=== PATIENT | female | born 1945 | race African-American/Black ===

== ENCOUNTER → 2017-05-21 | Day surgery (SDC) | payer MEDICARE ==
[~2017-05-21] VITALS: Ht 162.6 cm; Wt 68.0 kg
[~2017-05-21] MED LIST: ASPI-516 CHEW; ATOR40TA16 PO; CALC500T37 PO; CHLORHEXIDINE GLUCONATE 2 % 1 PACK (2 CLOTHS) TOPICAL PRN; CHOL1TAB29 PO; CLAR10CA3 PO; ESTR0.5T3 PO; FERR325T18 PO; FURO1TAB60 PO; HYDR500C PO; INSULIN HUMAN REGULAR 1,000 UNITS/10 ML VIAL SQ PRN; KLYTECL PO; LACTATED RINGER'S 1000 ML IV PRN; LIDOCAINE HCL 1% PF 30 ML VIAL ONE; LIDOCAINE HCL 2% JELLY 5 ML SYRINGE TOPICAL ONE; METOPROLOL TARTRATE 25 MG TAB PO PRN; MULTTAB67 PO; POVIDONE IODINE 5% (ANTISEPSIS KIT) 4 APPLICATIONS EACH NARE PRN; PROPARACAINE HCL 0.5% OPHT SOLN 15 ML BTL RIGHT EYE ONE; SODIUM CHLORID 0.9% 500 ML IV PRN; TOBRAMYCIN/DEXAMETHASONE OPTH OINT 3.5 GM TUBE ONE; VALA500T PO; VITA200C3 PO
[2017-05-21] MEDS: FLURBIPROFEN 0.03% OPHT SOLN 2.5 ML BTL RIGHT EYE SCH ×4 (08:30→08:45)
[2017-05-21] MEDS: PHENYLEPHRINE HCL 10% OPTH SOLN 5 ML BTL RIGHT EYE SCH ×4 (08:30→08:45)
[2017-05-21] MEDS: TROPICAMIDE 1% OPHT SOLN 15 ML BTL RIGHT EYE SCH ×4 (08:30→08:45)
[2017-05-21] MEDS: CYCLOPENTOLATE HCL 1% OPHT SOLN 2 ML BTL RIGHT EYE SCH ×4 (08:30→08:45)
[2017-05-21 10:00] VITALS: TEMP 98.6
[2017-05-21 10:20] VITALS: BP 126/66; PULSE 69; RESP 16; O2SAT 97
--- NOTE | 2017-05-21 12:17 | MP ---
cc: Trae Vizcaino MD DATE OF OPERATION: 05/21/2017 [facility] #[id number] PREOPERATIVE DIAGNOSIS: Visually significant cataract right eye. POSTOPERATIVE DIAGNOSIS: Visually significant cataract right eye. OPERATION: Phacoemulsification with posterior chamber lens implantation, right eye. SURGEON: Trae Vizcaino MD ANESTHESIA: Topical with MAC. COMPLICATIONS: None. DESCRIPTION OF THE PROCEDURE IN DETAIL: After informed consent was obtained, the patient was brought into the operative suite and placed on appropriate monitors by the anesthesia service. The patient had been given dilating drops and topical lidocaine gel in the holding area. The patient's operative eye was then prepped and draped in the usual sterile fashion. A wire lid speculum was placed. Further 2% lidocaine was then dropped on the cornea prior to beginning the procedure. A paracentesis incision was made in the peripheral cornea with a 1 mm brendan keratome. The anterior chamber was filled with viscoelastic. The anterior chamber was then entered through a stepped, clear corneal incision using a sharp 3 mm brendan keratome. A circular tear capsulorrhexis was then made with a bent needle cystitome. Following hydrodissection of the lens nucleus with balance saline, phacoemulsification of the nucleus was performed using a modified chopping technique. The remaining cortex was removed with irrigation/aspiration. The prior two procedures were both performed using the handpieces of the [employer] phaco unit. The capsular bag was then filled with viscoelastic. The intraocular lens was then injected into the capsular bag and positioned. The type of intraocular lens and its power can be found elsewhere in this chart. The remaining viscoelastic was then removed from the anterior chamber with the IA handpiece. The anterior chamber was reformed with balanced saline. The wound was then closed securely with stromal hydration. It was found to be watertight to an intraocular pressure of at least 30 mmHg by palpation. A small amount of balanced salt solution was then removed through the paracentesis site and the intraocular pressure at the end of the case was approximately 20 by palpation. All drapes were then removed. TobraDex ointment was then placed in the eye, which was closed beneath a semi-pressure patch dressing. The patient tolerated this procedure well and left the operating room awake and alert. The patient is to follow-up in my office in the morning. ADDENDUM: After the clear corneal incisions were sealed watertight, an 8 mm limbal relaxing incision was made with a 600 micron brendan blade, centered around the nasal 180 degree meridian. MD MARGOT Suazo/JORDAN , 10:01 AM , 10:26 AM
== END | disposition home or self-care (01) ==
LOC: PHSDC 07:11
PROVIDERS: ATTEND Optometrist Occupational Vision
DX: H25.811 Combined forms of age-related cataract, right eye (principal)
CPT/HCPCS: 00142; 66984; J7040; V2632

== ENCOUNTER → 2017-07-09 | Day surgery (SDC) | payer MEDICARE ==
[~2017-07-09] VITALS: Ht 162.6 cm; Wt 68.0 kg
[~2017-07-09] MED LIST changes: -ATOR40TA16 PO; +ATOR80TA45 PO; +BIOTCAP PO; -CALC500T37 PO; +CYCLOPENTOLATE HCL 1% OPHT SOLN 2 ML BTL ONE; -ESTR0.5T3 PO; +ESTR42.5V VAGINAL; +FLURBIPROFEN 0.03% OPHT SOLN 2.5 ML BTL ONE; -INSULIN HUMAN REGULAR 1,000 UNITS/10 ML VIAL SQ PRN; +LIDOCAINE HCL 2% JELLY 5 ML SYRINGE ONE; -MULTTAB67 PO; +PHENYLEPHRINE HCL 10% OPTH SOLN 5 ML BTL ONE; +PROPARACAINE HCL 0.5% OPHT SOLN 15 ML BTL LEFT EYE ONE; +PROPARACAINE HCL 0.5% OPHT SOLN 15 ML BTL ONE; -PROPARACAINE HCL 0.5% OPHT SOLN 15 ML BTL RIGHT EYE ONE; +TROPICAMIDE 1% OPHT SOLN 15 ML BTL ONE
[2017-07-09] MEDS: CYCLOPENTOLATE HCL 1% OPHT SOLN 2 ML BTL LEFT EYE SCH ×4 (06:45→07:00)
[2017-07-09] MEDS: FLURBIPROFEN 0.03% OPHT SOLN 2.5 ML BTL LEFT EYE SCH ×4 (06:45→07:00)
[2017-07-09] MEDS: TROPICAMIDE 1% OPHT SOLN 15 ML BTL LEFT EYE SCH ×4 (06:45→07:00)
[2017-07-09] MEDS: PHENYLEPHRINE HCL 10% OPTH SOLN 5 ML BTL LEFT EYE SCH ×4 (06:45→07:00)
[2017-07-09 08:21] VITALS: TEMP 97.8
[2017-07-09 08:37] VITALS: BP 134/65; PULSE 80; RESP 14; O2SAT 99
--- NOTE | 2017-07-09 10:29 | MP ---
cc: Trae Vizcaino MD DATE OF OPERATION: 07/09/2017 [facility] NUMBER: [id number] DATE OF PROCEDURE: 07/09/2017 PREOPERATIVE DIAGNOSIS: Visually significant cataract, left eye. POSTOPERATIVE DIAGNOSIS: Visually significant cataract, left eye. OPERATION: Phacoemulsification with posterior chamber lens implantation, left eye. SURGEON: Trae Vizcaino MD ANESTHESIA: Topical with MAC. COMPLICATIONS: None. DESCRIPTION OF PROCEDURE: After informed consent was obtained, the patient was brought into the operative suite and placed on appropriate monitors by the Anesthesia Service. The patient had been given dilating drops and topical lidocaine gel in the holding area. The patient's operative eye was then prepped and draped in the usual sterile fashion. A wire lid speculum was placed. Further 2% lidocaine was then dropped on the cornea prior to beginning the procedure. A paracentesis incision was made in the peripheral cornea with a 1 mm brendan keratome. The anterior chamber was filled with viscoelastic. The anterior chamber was then entered through a stepped, clear corneal incision using a sharp 3 mm brendan keratome. A circular tear capsulorrhexis was then made with a bent needle cystitome. Following hydrodissection of the lens nucleus with balance saline, phaco-emulsification of the nucleus was performed using a modified chopping technique. The remaining cortex was removed with irrigation/aspiration. The prior two procedures were both performed using the handpieces of the [employer] phaco unit. The capsular bag was then filled with viscoelastic. The intraocular lens was then injected into the capsular bag and positioned. The type of intraocular lens and its power can be found elsewhere in this chart. The remaining viscoelastic was then removed from the anterior chamber with the IA handpiece. The anterior chamber was reformed with balanced saline. The wound was then closed securely with stromal hydration. It was found to be watertight to an intraocular pressure of at least 30 mmHg by palpation. A small amount of balanced salt solution was then removed through the paracentesis site and the intraocular pressure at the end of the case was approximately 20 by palpation. All drapes were then removed. TobraDex ointment was then placed in the eye, which was closed beneath a semi-pressure patch dressing. The patient tolerated this procedure well and left the operating room awake and alert. The patient is to follow-up in my office in the morning. ADDENDUM: After the clear corneal incisions were sealed watertight, an 8 mm limbal relaxing incision was made with a 600 micron brendan blade, centered around the nasal 180 degree [place]. Trae MD MARGOT Simental/HAYDEN , 10:03 AM , 10:28 AM
== END | disposition home or self-care (01) ==
LOC: PHSDC 06:01
PROVIDERS: ATTEND Optometrist Occupational Vision
DX: H25.812 Combined forms of age-related cataract, left eye (principal)
CPT/HCPCS: 00142; 66984; J7040; V2632